=== PATIENT | male | born 1995 ===

== ENCOUNTER 2016-07-22 05:55 | Emergency (ER) | payer MEDICAID ==
[2016-07-22 06:07] VITALS: BP 142/93; PULSE 76; RESP 16; TEMP 98.5; O2SAT 98
--- NOTE | 2016-07-22 07:25 | ED PDOC ---
HPI: General Adult Time Seen by Provider: 07/22/16 07:17 Chief Complaint (Nursing): Flu-like Symptoms Chief Complaint (Provider): sore throat History Per: Patient History/Exam Limitations: no limitations Additional Complaint(s): 21yo male comes to the ED complaining of feeling ill for 2-3 days. Today he has sore throat and some ear discomfort when swallowing. Reports cough with sputum and nasal congestion yesterday. He had 101*F fever last night. No vomiting, diarrhea/constipation, chest pain, dysuria, shortness of breath, abdominal pain. No flu shot this season. No sick contacts. Past Medical History Reviewed: Historical Data, Nursing Documentation, Vital Signs Vital Signs: Last Vital Signs Temp 98.5 F 07/22/16 06:05 Pulse 76 07/22/16 06:05 Resp 16 07/22/16 06:05 BP 142/93 H 07/22/16 06:05 Pulse Ox 98 07/22/16 08:44 - Medical History PMH: No Chronic Diseases - Surgical History Surgical History: No Surg Hx - Family History Family History: States: Unknown Family Hx - Living Arrangements Living Arrangements: With Family - Social History Drugs: Denies - Home Medications Home Medications: Ambulatory Orders Medication Instructions Recorded Ibuprofen [Motrin] 600 mg PO Q6 #30 tab 07/22/16 - Allergies Allergies/Adverse Reactions: Allergies Allergy/AdvReac Type Severity Reaction Status Date / Time No Known Allergies Allergy Verified 07/22/16 06:05 Review of Systems ROS Statement: Except As Marked, All Systems Reviewed And Found Negative Constitutional: Positive for: Fever, Malaise. Negative for: Weakness ENT: Positive for: Nose Discharge (clear rhinorrhea), Nose Congestion, Throat Pain. Negative for: Ear Pain, Throat Swelling Cardiovascular: Negative for: Chest Pain, Palpitations, Paroxysmal Noc. Dyspnea , Edema, Light Headedness Respiratory: Positive for: Cough (non productive), Sputum. Negative for: Shortness of Breath, Hemoptysis, SOB with Exertion, Wheezing Gastrointestinal: Negative for: Nausea, Vomiting, Abdominal Pain, Diarrhea, Constipation Genitourinary Male: Negative for: Dysuria Musculoskeletal: Negative for: Neck Pain Skin: Negative for: Rash Neurological: Negative for: Weakness, Numbness, Confusion, Seizures, Altered Mental Status, Dizziness Physical Exam - Reviewed Nursing Documentation Reviewed: Yes Vital Signs Reviewed: Yes - Physical Exam Appears: Positive for: Well, Non-toxic, No Acute Distress Head Exam: Positive for: ATRAUMATIC, NORMAL INSPECTION, NORMOCEPHALIC Skin: Positive for: Warm, Dry Eye Exam: Positive for: EOMI, PERRL ENT: Positive for: Pharyngeal Erythema, Other (right tm obscured by wax. left tm some wax but no erythema). Negative for: Tonsillar Exudate Neck: Positive for: Normal, Painless ROM, Supple Cardiovascular/Chest: Positive for: Regular Rate, Rhythm, Chest Non Tender Respiratory: Positive for: Normal Breath Sounds. Negative for: Rales, Rhonchi, Stridor, Wheezing, Respiratory Distress Gastrointestinal/Abdominal: Positive for: Normal Exam, Soft. Negative for: Tenderness, Mass, Distended, Rebound Back: Positive for: Normal Inspection. Negative for: L CVA Tenderness, R CVA Tenderness Extremity: Positive for: Normal ROM Neurologic/Psych: Positive for: Alert, Oriented (x3) - ECG O2 Sat by Pulse Oximetry: 98 (RA) Pulse Ox Interpretation: Normal Medical Decision Making Medical Decision Makin Patient is well appearing male presenting with 2 days of uri symptoms with non- productive cough, sore throat and rhinorrhea. Differential includes strep pharyngitis, viral pharyngitis, flu. Lungs cta b/l and normal vitals on presentation. Plan: -influenza A B -rapid strep -toradol -reassess 0837 flu & strep are negative. symptoms are consistent with viral process. instructed to alternate tylenol & motrin. follow up with PMD in 2-3 days. stable for discharge. school & work notes given Disposition - Clinical Impression Clinical Impression: Influenza-like symptoms, Upper respiratory infection Counseled Patient/Family Regarding: Diagnosis, Need For Followup - Disposition Disposition: Routine/Home Disposition Time: 08:38 Condition: GOOD Additional Instructions: Take motrin for fever or pain. Rest and copious fluids. Return to ED if condition worsens. Follow-up with PMD within 2 days Prescriptions: Ibuprofen [Motrin] 600 mg PO Q6 #30 tab Instructions: Upper Respiratory Infection (ED), Viral Syndrome (ED), Cold Symptoms (ED) Forms: [employer] ED School/Work Excuse Additional Comments - Additional Comments Additional Comments: Scribe Attestation: Documented by Jorge Xiao acting as a scribe for Missy Cooper MD. MD Scribe Attestation: All medical record entries made by the Yung were at my direction and personally dictated by me. I have reviewed the chart and agree that the record accurately reflects my personal performance of the history, physical exam, medical decision making, and the department course for this patient. I have also personally directed, reviewed, and agree with the discharge instructions and disposition.
== END 2016-07-22 08:59 | disposition home or self-care (01) ==
LOC: H.ER 05:55
DX: J06.9 Acute upper respiratory infection, unspecified (principal); J02.9 Acute pharyngitis, unspecified; R05 Cough; B34.9 Viral infection, unspecified